=== PATIENT | male | born 1950 | race Caucasian/White ===

== ENCOUNTER 2018-04-30 07:29 | Emergency (ER) | payer BC ==
[~2018-04-30] VITALS: Ht 167.6 cm; Wt 71.3 kg
[2018-04-30 07:38] VITALS: Ht 167.6 cm; Wt 71.3 kg
[2018-04-30 08:27] LABS: RED CELL DISTRIBUTION WIDTH 13.7 % (11.5-14.5)
[2018-04-30 08:41] LABS: CALCIUM 9.2 mg/dL (8.5-10.1); CARBON DIOXIDE 31.1 mmol/L (21-32); CREATININE SERUM 1.5 mg/dL (0.7-1.3)
[2018-04-30 08:45] LABS: ALBUMIN 3.9 g/dL (3.4-5.0); BILIRUBIN TOTAL 0.73 mg/dL (0.20-1.00); CHOLESTEROL/HDL RATIO 6.5; TOTAL PROTEIN, SERUM 8.5 g/dL (6.4-8.2)
[2018-04-30 08:54] LABS: T3 TOTAL 1.01 ng/mL
[2018-04-30 09:02] LABS: FREE T4 1.11 ng/dL (0.76-1.46); FREE THYROXINE INDEX 3.2 ug/dL (1.4-4.5); T4(THYROXINE) 9.7 ug/dL (4.7-13.3)
[2018-04-30 09:19] LABS: BASOPHIL % 2.4 % (0-2); PLATELET COUNT 76 x10^3mcL (130-400)
[2018-04-30 12:13] VITALS: BP 152/61
== END 2018-04-30 12:13 | disposition home or self-care (01) ==
LOC: ED 07:29
PROVIDERS: Specialist
DX: J44.9 Chronic obstructive pulmonary disease, unspecified (principal); I10 Essential (primary) hypertension; M54.30 Sciatica, unspecified side; N40.0 Benign prostatic hyperplasia without lower urinary tract symptoms; Z88.0 Allergy status to penicillin
CPT/HCPCS: 83880; 84439; 87804; J0456; J2405; J3490; J7050